=== PATIENT | male | born 1995 | race Caucasian/White ===

== ENCOUNTER 2022-01-27 17:50 | Emergency (ER) | payer BC ==
[~2022-01-27] VITALS: Ht 172.7 cm; Wt 68.9 kg
[2022-01-27 19:10] VITALS: BP 133/65
--- NOTE | 2022-01-27 19:15 | NUR ---
SWABS FOR ALISHA, INFLUENZA A&B SENT TO LAB
--- NOTE | 2022-01-27 19:20 | NUR ---
TO LOBBY A/W BED AMBULATORY
[2022-01-27] MEDS ORDERED: IBUP-1842 PO (20:43)
[2022-01-27] MEDS ORDERED: BENZ100C6 PO (20:43)
[2022-01-27] MEDS ORDERED: TAM75 PO (20:43)
[2022-01-27] MEDS ORDERED: IBUPROFEN 600 MG TAB PO ONE (20:55)
--- NOTE | 2022-01-27 21:10 | NUR ---
Patient discharged with v/s stable. Written and verbal after care instructions given and explained to parent/guardian. Parent/Guardian verbalized understanding. Ambulatorysteady gait. All questions addressed prior to discharge. Advised to follow up with PMD.
== END 2022-01-27 21:10 | disposition home or self-care (01) ==
LOC: MED 17:50
DX: J10.1 Influenza due to other identified influenza virus with other respiratory manifestations (principal); Z20.822 Contact with and (suspected) exposure to COVID-19; Z79.899 Other long term (current) drug therapy
CPT/HCPCS: 71045; 99284